=== PATIENT | male | born 1975 | race Caucasian/White ===

== ENCOUNTER 2022-11-01 10:46 | Emergency (ER) | payer OTHER ==
[~2022-11-01] VITALS: Ht 167.6 cm; Wt 54.4 kg
[2022-11-01 10:56] VITALS: BP 149/88; TEMP 98.3
== END 2022-11-01 13:39 | disposition home or self-care (01) ==
LOC: ER 10:51
DX: S60.211A Contusion of right wrist, initial encounter (principal); X58.XXXA Exposure to other specified factors, initial encounter; Y93.89 Activity, other specified; Y92.89 Other specified places as the place of occurrence of the external cause; Y99.8 Other external cause status
CPT/HCPCS: 73090-TC; 73110